=== PATIENT | female | born 1950 | race Caucasian/White ===

== ENCOUNTER 2019-12-26 09:52 | Outpatient (CLI) | payer MEDICARE | END 2019-12-26 09:53 | disposition home or self-care (01) | LOC: COV 09:52 | PROVIDERS: ATTEND Family Medicine | DX: M79.10 Myalgia, unspecified site (principal); R53.83 Other fatigue; R68.83 Chills (without fever); R43.8 Other disturbances of smell and taste; Z20.828 Contact with and (suspected) exposure to other viral communicable diseases ==